=== PATIENT | male | born 1965 | race Caucasian/White ===

== ENCOUNTER 2019-05-16 20:48 | Emergency (ER) | payer OTHER ==
[~2019-05-16] VITALS: Ht 172.7 cm; Wt 106.6 kg
[~2019-05-16 20:48] MED LIST: AMBIEN 5 MG TABL5 M1 PO; FLEXERIL PO; HYDROCODONE-AP1 EAC6 PO; LIPITOR10 MG; LISINOPRIL10 MG; MEDROLDOSEPACK PO; METFORMIN HCL500 MG; NOHOMEMEDICATIONS; PREDNISONE 5 MG5 M1 PO
[2019-05-16 22:07] LABS: ABSOLUTE EOSINOPHILS 0.1 thou/uL (0.0-0.7); ABSOLUTE MONOCYTES 0.8 thou/uL (0.0-1.2); ABSOLUTE NEUTROPHILS 3.8 thou/uL (1.6-8.1); BASOPHILS 0.2 %; EOSINOPHILS 1.7 %; HEMATOCRIT 37.9 % (42.0-52.0); HEMOGLOBIN 12.9 gm/dL (14.0-18.0); LYMPHOCYTES 39.1 %; MCV 88.2 fL (80.0-100.0); MONOCYTES 10.3 %; MPV 8.4 fl. (7.2-11.1); NUCLEATED RBCS 0 /100WBC; PLATELET COUNT* 241 thou/uL (150-400); POLYS 48.7 %; RBC 4.29 mil/uL (4.50-6.00); RDW-CV 13.1 % (10.5-14.5); WBC 7.8 thou/uL (4.0-11.0)
[2019-05-16 22:17] LABS: CALCIUM 8.8 mg/dL (8.5-10.1); CREATININE 0.9 mg/dL (0.6-1.3); POTASSIUM 3.9 mmol/L (3.5-5.1)
[2019-05-16 22:26] LABS: PROTIME 10.3 Seconds (9.20-11.50)
[2019-05-16 22:28] LABS: ALBUMIN 3.4 g/dL (3.4-5.0); TOTAL BILIRUBIN 0.4 mg/dL (<0.1-1.0); URIC ACID* 6.2 mg/dL (2.6-7.2)
[2019-05-16 23:13] LABS: ESR (SEDRATE) 28 mm/hr (0-20)
[2019-05-17] MEDS ORDERED: CLEOCIN HCL150 MG PO (00:46)
[2019-05-17] MEDS ORDERED: HYDROCODON-ACE1 EAC8 PO (00:46)
[2019-05-17 00:57] VITALS: BP 142/73
== END 2019-05-17 00:58 | disposition home or self-care (01) ==
LOC: M.ERS 20:48
PROVIDERS: Emergency Medicine
DX: L03.115 Cellulitis of right lower limb (principal); I10 Essential (primary) hypertension; E11.9 Type 2 diabetes mellitus without complications; E78.5 Hyperlipidemia, unspecified

== ENCOUNTER 2021-05-30 12:50 | Inpatient (IN) | payer OTHER ==
[~2021-05-30] VITALS: Ht 172.7 cm; Wt 83.9 kg
[~2021-05-30 12:50] MED LIST changes: +CLEOCIN HCL150 MG PO; +HYDROCODON-ACE1 EAC8 PO
[2021-05-30 13:09] VITALS: BP 119/84
[2021-05-30 13:35] LABS: ABSOLUTE BASOPHILS 0.1 thou/uL (0.0-0.2); ABSOLUTE LYMPHOCYTES 1.3 thou/uL (0.8-5.3); ABSOLUTE MONOCYTES 0.5 thou/uL (0.0-1.2); ABSOLUTE NEUTROPHILS 6.5 thou/uL (1.6-8.1); BASOPHILS 0.9 %; EOSINOPHILS 0.5 %; HEMOGLOBIN 14.4 gm/dL (14.0-18.0); LYMPHOCYTES 15.6 %; MCH 29.2 pg (26.0-34.0); MCHC 33.4 g/dL (28.0-37.0); MCV 87.4 fL (80.0-100.0); MONOCYTES 6.1 %; MPV 8.6 fl. (7.2-11.1); NUCLEATED RBCS 0 /100WBC; PLATELET COUNT* 227 thou/uL (150-400); POLYS 76.9 %; RBC 4.91 mil/uL (4.50-6.00); RDW-CV 13.3 % (10.5-14.5); WBC 8.5 thou/uL (4.0-11.0)
[2021-05-30 13:58] LABS: CALCIUM 8.6 mg/dL (8.5-10.1); POTASSIUM 3.8 mmol/L (3.5-5.1)
[2021-05-30 14:03] LABS: ALBUMIN 2.9 g/dL (3.4-5.0); TOTAL BILIRUBIN 0.5 mg/dL (<0.1-1.0); TOTAL PROTEIN 7.4 g/dL (6.4-8.2)
[2021-05-30 16:00] VITALS: BP 136/52; BP 142/90
[2021-05-30 16:04] VITALS: BP 125/65
[2021-05-30 16:09] LABS: MAGNESIUM 2.3 mg/dL (1.8-2.4); PHOSPHORUS* 3.8 mg/dL (2.5-4.9)
[2021-05-30 22:30] VITALS: BP 128/84
[2021-05-31] VITALS: BP 124/89
[2021-05-31 04:00] VITALS: BP 130/80
[2021-05-31 10:36] VITALS: BP 120/72
[2021-05-31 12:00] VITALS: BP 145/78
[2021-05-31 16:12] VITALS: BP 125/79
[2021-05-31 22:00] VITALS: BP 133/72
[2021-06-01 00:40] VITALS: BP 143/87
[2021-06-01 05:07] VITALS: BP 136/83
[2021-06-01 08:00] VITALS: BP 127/82
[2021-06-01] MEDS ORDERED: VENTOLIN HFA 1818 GM INH (09:00)
[2021-06-01] MEDS ORDERED: VITAMIN D325 MC2 PO (09:00)
[2021-06-01] MEDS ORDERED: PRENATAL PO (09:00)
[2021-06-01] MEDS ORDERED: DEXAMETHASONE6 MG PO (09:00)
[2021-06-01] MEDS ORDERED: VITAMINC500 PO (09:00)
[2021-06-01] MEDS ORDERED: TESSALON PERLE100 MG PO (09:00)
[2021-06-01 10:38] VITALS: BP 127/82
[2021-06-01 11:38] VITALS: BP 114/65
[2021-06-01 16:04] VITALS: BP 126/76
== END 2021-06-01 21:02 | disposition home or self-care (01) | DRG 177 ==
LOC: M.ERS 12:50 → M.ORTHSURG 14:24 → M.TBA-ER 14:24 → M.ORTHSURG 16:45
PROVIDERS: Physician Assistant; ADMIT Internal Medicine; ATTEND Internal Medicine
PROC: XW033E5 Introduction of Remdesivir Anti-infective into Peripheral Vein, Percutaneous Approach, New Technology Group 5 (ICD-10-PCS; principal; 2021-05-30)
DX: U07.1 COVID-19 (principal); J96.01 Acute respiratory failure with hypoxia; J12.82 Pneumonia due to coronavirus disease 2019; I10 Essential (primary) hypertension; E78.5 Hyperlipidemia, unspecified; E11.9 Type 2 diabetes mellitus without complications; Z79.899 Other long term (current) drug therapy